=== PATIENT | female | born 2000 | race African-American/Black ===

== ENCOUNTER 2025-07-11 12:43 | Emergency (ER) | payer MEDICAID ==
[~2025-07-11] VITALS: Ht 167.6 cm; Wt 63.0 kg
[2025-07-11 12:51] VITALS: BP 156/98; PULSE 104; RESP 18; TEMP 36.6; O2SAT 98
[2025-07-11] MEDS ORDERED: IBUPROFEN 800MG TABLET PO ONE (13:30)
[2025-07-11] MEDS ORDERED: TETRACAINE 0.5% OPHTH DROPS 4ML EACHEYE ONE (13:30)
== END 2025-07-11 13:39 | disposition left against medical advice (07) ==
LOC: ER 13:25
DX: T59.3X3A Toxic effect of lacrimogenic gas, assault, initial encounter (principal); M41.9 Scoliosis, unspecified; Y92.89 Other specified places as the place of occurrence of the external cause
CPT/HCPCS: 99283